=== PATIENT | male | born 1975 | race Caucasian/White ===

== ENCOUNTER 2017-01-09 07:02 | Emergency (ER) | payer OTHER | END 2017-01-09 08:44 | disposition home or self-care (01) | LOC: ER 07:02 | DX: T26.12XA Burn of cornea and conjunctival sac, left eye, initial encounter (principal); T26.11XA Burn of cornea and conjunctival sac, right eye, initial encounter; X17.XXXA Contact with hot engines, machinery and tools, initial encounter; Y93.89 Activity, other specified | CPT/HCPCS: 99283; A9270-GY ==